=== PATIENT | male | born 1965 | race Caucasian/White ===

== ENCOUNTER 2019-12-07 18:42 | Inpatient (IN) | payer OTHER ==
[~2019-12-07] VITALS: Ht 182.9 cm; Wt 82.7 kg
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
--- NOTE | 2019-12-07 18:45 | NUR ---
PATIENT TO ER #4, STRATEGY LEAD, SAO2, ABP AND STAT EKG
--- NOTE | 2019-12-07 18:50 | NUR ---
EKG performed at by PJ Taylor. Physician given copy of EKG for review.
[2019-12-07 18:51] VITALS: BP_SYST 111
[2019-12-07] MEDS ORDERED: MAGN400T39 PO (18:51)
[2019-12-07] MEDS ORDERED: ASPIRIN 81 MG TAB.CHEW PO ONE (19:00)
--- NOTE | 2019-12-07 19:01 | NUR ---
ZOFRAN 8 MG PO IN FIELD
--- NOTE | 2019-12-07 19:15 | NUR ---
Report given to PJ Aranda. For continuation of care.
--- NOTE | 2019-12-07 19:15 | NUR ---
ASSUMED CARE OF PT. PT RESTING QUIETLY IN NO APPARENT DISTRESS. PT AWAITING FOR RESULTS.
[2019-12-07 19:32] LABS: BASOPHILS # (AUTO) 0.1 K/uL (0.0-0.2); BASOPHILS % (AUTO) 0.9 % (0.0-2.0); EOSINOPHILS # (AUTO) 0.5 K/uL (0.0-0.4); HEMATOCRIT 42.5 % (36-54); HEMOGLOBIN 14.2 g/dL (14.0-18.0); LYMPHOCYTES # (AUTO) 3.2 K/uL (1.0-5.5); LYMPHOCYTES % (AUTO) 32.6 % (20.5-51.5); MEAN CORPUSCULAR HEMOGLOBIN 31 pg (27-31); MEAN CORPUSCULAR HGB CONC 33 % (32-36); MEAN CORPUSCULAR VOLUME 93 fL (79.0-98.0); MONOCYTES # (AUTO) 0.8 K/uL (0.0-1.0); MONOCYTES % (AUTO) 8.5 % (1.7-9.3); NEUTROPHILS # (AUTO) 5.2 K/uL (1.8-7.7); PLATELET COUNT (AUTO) 218 K/uL (130-430); RED BLOOD CELL COUNT(AUTO) 4.59 MIL/uL (4.2-6.2); RED CELL DISTRIBUTION WIDTH 12.7 % (9.0-15.0); WHITE BLOOD COUNT (AUTO) 9.8 K/uL (4.8-10.8)
[2019-12-07 19:37] LABS: CALCIUM 8.3 mg/dL (8.4-11.0); CREATININE 1.2 mg/dL (0.55-1.30); POTASSIUM 3.4 mmol/L (3.5-5.1)
[2019-12-07 19:43] LABS: ALBUMIN 3.4 g/dL (3.4-4.8); TOTAL BILIRUBIN 0.4 mg/dL (0.0-1.0)
--- NOTE | 2019-12-07 20:30 | NUR ---
PT AWAITING DISPOSITION. RESTING QUIETLY IN NO DISTRESS.
[2019-12-07 20:33] LABS: THYROID STIMULATING HORMONE 3.24 uIu/mL (0.34-4.82)
[2019-12-07 20:41] LABS: ALCOHOL, BLOOD < 3 mg/dL (<10)
--- NOTE | 2019-12-07 21:35 | NUR ---
ER at bedside RE-examining patient.
--- NOTE | 2019-12-07 21:50 | NUR ---
PT TO CT SCAN VIA [facility].
[2019-12-07] MEDS ORDERED: POTASSIUM CHLORIDE 20 MEQ TAB.PRT.SR PO ONE (22:00)
[2019-12-07] MEDS ORDERED: DIPH-TET-PERTUS Vaccine 0.5 ML VIAL (ADACEL) I.M. ONE (22:00)
[2019-12-07] MEDS ORDERED: NACL 0.9% 1,000 ML IV ONE (22:00)
--- NOTE | 2019-12-07 22:06 | NUR ---
PT BACK FROM CT SCAN.
[2019-12-08] MEDS ORDERED: ALBUTEROL SULFATE 0.083% 2.5 MG/3 ML VIAL.NEB INH PRN
[2019-12-08] MEDS ORDERED: MORPHINE 2 MG/ML INJ. SYRINGE IVP PRN
[2019-12-08] MEDS ORDERED: ACETAMINOPHEN 325 MG TABLET PO PRN
--- NOTE | 2019-12-08 00:57 | NUR ---
Transfer to TELE via ACLS protocol. Licensed nurse present. IV present no signs or symptoms of infiltration.
--- NOTE | 2019-12-08 01:07 | NUR ---
ADMISSION: The patient, JOSÉ BEARD, 54 y/o, M admitted by SOFÍA MCGRATH MD, TO ROOM 106 A , WITH THE DIAGNOSIS OF HEAD TRAUMA AND SYNCOPE .
--- NOTE | 2019-12-08 01:15 | NUR ---
RN NOTES: PT IS ALERT AND ORIENTED ; DENIED AY DIZZINESS , SOB OR ANY PAIN AT THIS TIME ; VITALS ARE STABLE ; ASSESSMENT DONE ; IV TO THE LEFT WRIST 20 G; NO S/S OF ANY INFILTRATION NOTICED ; WILL START IV FLUID ;NOTICED MILD REDNESS TO THE POSTERIOR HEAD ,, RIGHT FOREHEAD , CAMERON LOWER LEGS ,NO OPEN WOUNDS NOTICED ; BED IN LOW AND LOCK POSITION , CALL ALFARO IN REACH ; WILL CONTINUE TO MONITOR PT .
[2019-12-08 01:16] VITALS: BP_SYST 124
[2019-12-08] MEDS: NACL 0.9% 1,000 ML IV SCH ×3 (01:55→20:48)
--- NOTE | 2019-12-08 01:55 | NUR ---
IV FLUID STARTED ; PT ASSISTED TO RESTROOM AND ASSISTED BACK TO BED ; PT IS IN STEADY GAIT .
--- NOTE | 2019-12-08 03:15 | NUR ---
RN NOTES; PT IS SLEEPING , NOT IN ANY ACUTE DISTRESS; RESPIRATION IS EVEN AND NON LABORED . WILL CONTINUE TO MONITOR PT .
--- NOTE | 2019-12-08 05:15 | NUR ---
MD ROUNDS; DR HUNT MADE ROUNDS, NO NEW ORDERS RECEIVED .
--- NOTE | 2019-12-08 05:18 | NUR ---
CONSULTATION PAGED/CALLED Reason for Consultation: AFIB RVR Person Who was Notified: KRYSTEN Consulting Physician: DR BRAUN- MIKAELA THOMAS Technology Solutions Architect Specialty: Ordering Physician: DR. HUNT
[2019-12-08 05:58] VITALS: BP_SYST 124
--- NOTE | 2019-12-08 06:33 | NUR ---
RN NOTES: PT IS SLEEPING , NOT IN ANY ACUTE DISTRESS; RESPIRATION IS EVEN AND NON LABORED ; WILL CONTINUE TO MONITOR PT .
[2019-12-08 06:41] LABS: BASOPHILS # (AUTO) 0.1 K/uL (0.0-0.2); BASOPHILS % (AUTO) 0.6 % (0.0-2.0); EOSINOPHILS # (AUTO) 0.2 K/uL (0.0-0.4); HEMATOCRIT 42.2 % (36-54); HEMOGLOBIN 14.1 g/dL (14.0-18.0); LYMPHOCYTES # (AUTO) 1.8 K/uL (1.0-5.5); LYMPHOCYTES % (AUTO) 16.6 % (20.5-51.5); MEAN CORPUSCULAR HEMOGLOBIN 31 pg (27-31); MEAN CORPUSCULAR HGB CONC 33 % (32-36); MEAN CORPUSCULAR VOLUME 93 fL (79.0-98.0); MONOCYTES % (AUTO) 9.3 % (1.7-9.3); NEUTROPHILS # (AUTO) 7.9 K/uL (1.8-7.7); NEUTROPHILS % (AUTO) 71.5 % (40.0-70.0); PLATELET COUNT (AUTO) 212 K/uL (130-430); RED BLOOD CELL COUNT(AUTO) 4.55 MIL/uL (4.2-6.2); RED CELL DISTRIBUTION WIDTH 12.6 % (9.0-15.0)
[2019-12-08 06:53] LABS: ALBUMIN 3.2 g/dL (3.4-4.8); CALCIUM 7.9 mg/dL (8.4-11.0); CREATININE 0.85 mg/dL (0.55-1.30); TOTAL BILIRUBIN 0.3 mg/dL (0.0-1.0)
--- NOTE | 2019-12-08 07:15 | NUR ---
CLOSING NOTES: REPORT GIVEN TO PRIMARY RN , PT IS COMFORTABLE ; SLEEPING ON AND OFF , NOT IN ANY ACUTE DISTRESS; RESPIRATION IS EVEN AND NON LABORED ; ALL NEEDS ATTENDED .
[2019-12-08 07:43] VITALS: BP_SYST 119
--- NOTE | 2019-12-08 08:00 | NUR ---
Note Pt sitting up in bed eating his breakfast. No SOB/resp distress or pain/discomfort at this time. Tele unit attached and intact at this time. IV in left wrist intact and patent infusing IVF's well. No needs noted at this time. Call light within reach.
[2019-12-08 12:00] VITALS: BP_SYST 114
--- NOTE | 2019-12-08 12:00 | NUR ---
Note Pt ambulates to restroom with steady gait and IV pole frequently. Pt denies any needs or chest pain at this time. Call light within reach.
--- NOTE | 2019-12-08 12:40 | NUR ---
Note Dr Bello at bedside assessing pt and writing orders. Pt sitting up in bed eating his lunch at this time. Call light within reach.
[2019-12-08] MEDS ORDERED: ONDANSETRON HCL 4 MG/2 ML VIAL IVP PRN ×2 (14:30)
--- NOTE | 2019-12-08 14:50 | NUR ---
Note Dr Story on the floor at pt's bedside doing assessment at 1425. Orders written and carried out at this time. Pt denies any needs at this time. Call light within reach.
[2019-12-08] MEDS ORDERED: ASPIRIN 81 MG TAB.CHEW PO ONE (15:00)
--- NOTE | 2019-12-08 15:23 | NUR ---
P.T. NOTES P.T. EVAL COMPLETED; ENDORSED TO NURSING; AMBULATORY WITHOUT ASST DEVICE.
--- NOTE | 2019-12-08 15:40 | NUR ---
Note US of bilateral carotids was done at bedside, waiting for results at this time.
[2019-12-08] MEDS ORDERED: MORPHINE SULFATE 10 MG/ML VIAL IVP PRN (15:55)
[2019-12-08 16:00] VITALS: BP_SYST 125
--- NOTE | 2019-12-08 16:20 | NUR ---
Note Pt resting in bed - denies any needs at this time. IVF's infusing well. Call light within reach.
--- NOTE | 2019-12-08 18:30 | NUR ---
Note Pt sitting up in bed finishing his dinner. No SOB/resp distress or pain/discomfort was noted at this time. IV in left wrist intact and patent infusing IVF's well. Tele unit attached and intact all shift. No needs noted at this time. Pt was checked on q1' and PRN all shift for needs and care. Call light within reach. Pt ambulates in room and to restroom ad johann with steady gait. Call light within reach.
--- NOTE | 2019-12-08 19:30 | NUR ---
OPENING NOTE RECEIVED CARE OF PT AND SBAR REPORT. PT IS AAOX4, RESTING IN BED, DENIES PAIN OR DIZZINESS. NO SOB OR SIGN OF RESPIRATORY DISTRESS, BREATHING IS UNLABORED TO ROOM AIR. IV TO LEFT WRIST IS INFUSING ORDERED, NO S/S OF INFILTRATION NOTED AT IV SITE. POC DISCUSSED WITH PT. SAFETY PRECAUTIONS ARE IN PLACE. BED IS LOCKED IN LOWEST POSITION. SIDE RAILS UP X2, CALL LIGHT IS WITH PT. WILL MONITOR.
[2019-12-08 20:00] VITALS: BP_SYST 120
--- NOTE | 2019-12-08 20:50 | NUR ---
NEW BAG OF NS HUNG AND SET TO INFUSE AT ORDERED RATE. HYGIENE SUPPLIES (TOOTHBRUSH/TOOTHPASTE/MOUTHWASH) PROVIDED FOR PT. SAFETY AND FALL PRECAUTIONS MAINTAINED. WILL MONITOR.
--- NOTE | 2019-12-08 22:35 | NUR ---
SNACKS PT GIVEN PUDDINGS PER REQUEST. PT DENIES FURTHER NEEDS AT THIS TIME. NO S/S OF DISTRESS. SAFETY MAINTAINED. WILL MONITOR.
--- NOTE | 2019-12-09 00:15 | NUR ---
RESTING PT RESTING IN BED. NO S/S OF DISTRESS. BREATHING UNLABORED TO ROOM AIR. IVF INFUSING ORDERED. SAFETY MAINTAINED. WILL MONITOR.
[2019-12-09 01:12] VITALS: BP_SYST 122
--- NOTE | 2019-12-09 02:17 | NUR ---
SLEEPING PT RESTING IN BED, APPEARS TO BE SLEEPING, VISIBLE SYMMETRICAL RISE AND FALL OF CHEST TO ROOM AIR. NO S/S OF ACUTE DISTRESS. NO SIGNS OF PAIN NOTED. IVF INFUSING AT ORDERED RATE. SAFETY PRECAUTIONS MAINTAINED. WILL MONITOR.
--- NOTE | 2019-12-09 04:02 | NUR ---
RN ROUNDS: PT RESTING IN BED, APPEARS TO BE SLEEPING, APPEARS COMFORTABLE AT THIS TIME, VISIBLE SYMMETRICAL RISE AND FALL OF CHEST TO ROOM AIR. NO S/S OF ACUTE DISTRESS. NO SIGNS OF PAIN NOTED. IVF INFUSING AT ORDERED RATE. SAFETY PRECAUTIONS MAINTAINED. WILL MONITOR.
[2019-12-09] MEDS: NACL 0.9% 1,000 ML IV SCH (05:17)
--- NOTE | 2019-12-09 05:21 | NUR ---
NEW BAG OF NS HUNG AND SET TO INFUSE AT ORDERED RATE. PT RESTING IN BED, NO SIGNS OF ACUTE DISTRESS. SAFETY AND FALL PRECAUTIONS MAINTAINED. WILL MONITOR.
--- NOTE | 2019-12-09 06:43 | NUR ---
CLOSING NOTE PT IS RESTING IN BED. NO DIZZINESS THROUGHOUT SHIFT. NO SOB OR SIGN OF RESPIRATORY DISTRESS, BREATHING IS UNLABORED TO ROOM AIR. IV TO LEFT WRIST IS INFUSING ORDERED, NO S/S OF INFILTRATION NOTED AT IV SITE. SAFETY PRECAUTIONS ARE IN PLACE. BED IS LOCKED IN LOWEST POSITION. SIDE RAILS UP X2, CALL LIGHT IS WITH PT. WILL CONTINUE TO MONITOR UNTIL PT CARE IS ENDORSED TO DAY SHIFT RN.
[2019-12-09 07:04] LABS: BASOPHILS # (AUTO) 0.1 K/uL (0.0-0.2); EOSINOPHILS # (AUTO) 0.7 K/uL (0.0-0.4); EOSINOPHILS % (AUTO) 9.1 % (0.0-4.0); HEMATOCRIT 40.7 % (36-54); HEMOGLOBIN 13.5 g/dL (14.0-18.0); LYMPHOCYTES # (AUTO) 2.7 K/uL (1.0-5.5); MEAN CORPUSCULAR HEMOGLOBIN 31 pg (27-31); MEAN CORPUSCULAR HGB CONC 33 % (32-36); MEAN CORPUSCULAR VOLUME 94 fL (79.0-98.0); MONOCYTES # (AUTO) 0.9 K/uL (0.0-1.0); MONOCYTES % (AUTO) 12.4 % (1.7-9.3); NEUTROPHILS # (AUTO) 3.1 K/uL (1.8-7.7); NEUTROPHILS % (AUTO) 41.5 % (40.0-70.0); PLATELET COUNT (AUTO) 187 K/uL (130-430); RED BLOOD CELL COUNT(AUTO) 4.33 MIL/uL (4.2-6.2); RED CELL DISTRIBUTION WIDTH 12.9 % (9.0-15.0); WHITE BLOOD COUNT (AUTO) 7.5 K/uL (4.8-10.8)
[2019-12-09 07:29] LABS: ALBUMIN 2.8 g/dL (3.4-4.8); CALCIUM 7.7 mg/dL (8.4-11.0); CREATININE 1.03 mg/dL (0.55-1.30); POTASSIUM 4.1 mmol/L (3.5-5.1); TOTAL BILIRUBIN 0.5 mg/dL (0.0-1.0)
[2019-12-09 07:53] VITALS: BP_SYST 104
--- NOTE | 2019-12-09 08:00 | NUR ---
Note Pt sitting up in bed eating his breakfast. No SOB/resp distress or pain/discomfort or dizziness/weakness during ambulation in room or to restroom noted. IV in left forearm intact and patent infusing IVF's well. No needs noted at this time. Call light within reach. Tele unit attached and intact.
--- NOTE | 2019-12-09 08:40 | NUR ---
Note Dr Ashish Story at bedside assessing pt.
[2019-12-09] MEDS ORDERED: ASA81 PO (08:41)
[2019-12-09] MEDS ORDERED: ASPIRIN 81 MG TAB.CHEW PO SCH (09:00)
--- NOTE | 2019-12-09 10:25 | NUR ---
Note Pt's tele unit was dc'd and returned to pyrotechnic mixer. IVF's were saline locked.
[2019-12-09 11:00] VITALS: BP_SYST 106
--- NOTE | 2019-12-09 11:40 | NUR ---
Note Pt dressed in street clothes and packed all belongings. Pt checked side table and drawers for belongings. Pt was given discharge instructions. Questions/concerns were answered at this time. Pt denies any SOB/resp distress or pain/discomfort/soreness or dizziness/weakness all shift. Pt stable. Pt waiting for his brother for picking machine operator helper at noon. Call light within reach.
--- NOTE | 2019-12-09 12:05 | NUR ---
Note Pt off the floor via wheelchair with all belongings and discharge paperwork. Pt stable.
== END 2019-12-09 12:05 | disposition home or self-care (01) | DRG 312 ==
LOC: SED 18:42 → STU 22:27
PROVIDERS: ADMIT Internal Medicine Hospice and Palliative Medicine; ATTEND Internal Medicine Hospice and Palliative Medicine
DX: R55 Syncope and collapse (principal); E86.0 Dehydration; I48.91 Unspecified atrial fibrillation; I95.9 Hypotension, unspecified; S09.90XA Unspecified injury of head, initial encounter; W18.30XA Fall on same level, unspecified, initial encounter; Y92.89 Other specified places as the place of occurrence of the external cause; Y93.55 Activity, bike riding; Y99.8 Other external cause status
CPT/HCPCS: 36415; 70450-TC; 71045; 80053; 80061; 82550-TC; 83735-TC; 83880; 84443-TC; 84484; 85025; 90715; 93005; 93306; 93880; 96360; 99285; G0378; G0482; J7030